=== PATIENT | male | born 1985 | race Caucasian/White ===

== ENCOUNTER 2024-02-19 07:42 | Outpatient (CLI) | payer OTHER, SELFPAY ==
--- NOTE | 2024-02-19 12:24 | WPDPFTINT ---
PFT Procedure Performed PFT Procedure Performed Spirometry with Pre/Post Bronchodilator Plethysmography (Lung Vol) Diffusing Cap (DLCO) Flow Vol Loop PFT Interpretation This is a pulmonary function test with pre and post-bronchodilator spirometry, plethysmography and diffusing capacity. The test was performed and results interpreted in accordance with the 2019 and 2005 ATS/ERS Task Force guidelines respectively using the Global Lung Function Initiative-2012 reference equations. Patient demonstrated good effort and cooperation. Reproducibility criteria were met. The quality of the pre bronchodilator spirometry maneuver was Grade A and post bronchodilator spirometry maneuver was Grade A. Findings: Spirometry: The contour the inspiratory and expiratory flow tracing are normal. The pre bronchodilator FVC is 6.01 L, 113% predicted. The pre bronchodilator FEV1 is 4.16 L, 97% predicted. The pre bronchodilator FEV1: FVC ratio 69%.The post bronchodilator FVC is 6.15 L, representing a 2% increase. The post bronchodilator FEV1 is 4.43 L, representing a 7% increase. The post bronchodilator FEV1: FVC ratio 72%. Plethysmography: Total lung capacity is 7.14 L, 103% predicted. The functional residual capacity is 2.30 L, 67% predicted. The residual volume is 1.13 L, 63% predicted. Diffusing capacity: The diffusing capacity unadjusted for hemoglobin and carboxyhemoglobin is 29.0, 87% predicted. The diffusing capacity adjusted for alveolar volume is 3.90, 79% predicted. Impression: There is a mild obstructive abnormality with a normal FEV1. There is no significant improvement after inhaling a single dose of albuterol. The lung volumes are normal. The diffusing capacity is normal. There are no prior studies for comparison
== END 2024-02-19 07:43 | disposition home or self-care (01) ==
LOC: ANHPFT 07:45
PROVIDERS: PCP Nurse Practitioner; Visit Provider Nurse Practitioner
DX: Z02.1 Encounter for pre-employment examination (principal); R94.2 Abnormal results of pulmonary function studies
CPT/HCPCS: 94060; 94726; 94729